=== PATIENT | male | born 1990 | race African-American/Black ===

== ENCOUNTER 2021-02-10 00:15 | Emergency (ER) | payer OTHER ==
[~2021-02-10] VITALS: Ht 167.6 cm; Wt 86.2 kg
[2021-02-10] MEDS ORDERED: NORVASC10 MG PO (00:26)
[2021-02-10] MEDS ORDERED: CARVEDILOL25 MG PO (00:26)
[2021-02-10] MEDS ORDERED: RENVELA0.8 GM PO (00:26)
[2021-02-10] MEDS ORDERED: LANTUS SUBQ (00:47)
[2021-02-10] MEDS ORDERED: HUMALOG100 UNIT/1 SUBQ (00:48)
[2021-02-10 00:54] LABS: BASOPHILS 0.3 % (0.0-2.0); HEMATOCRIT 31.8 % (42.0-52.0); HEMOGLOBIN 10.6 gm/dL (14.0-18.0); LYMPHOCYTES 10.9 % (24.0-44.0); MCH 33.3 pg (26.0-34.0); MCHC 33.4 g/dL (28.0-37.0); MCV 99.9 fL (80.0-100.0); MONOCYTES 7.9 % (1.0-8.0); PLATELET COUNT 264 thou/uL (150-400); POLYS 77.9 % (36.0-66.0); RBC 3.18 mil/uL (4.50-6.00); RDW 19.1 % (10.5-14.5); WBC 10.2 thou/uL (4.0-11.0)
[2021-02-10 01:08] LABS: CALCIUM 8.3 mg/dL (8.5-10.1); CREATININE 19.7 mg/dL (0.7-1.3)
[2021-02-10 01:16] LABS: ALBUMIN 3.5 g/dL (3.4-5.0); TOTAL BILIRUBIN 0.7 mg/dL (0.2-1.0); TOTAL PROTEIN 7.7 g/dL (6.4-8.2); TROPONIN-I 0.09 ng/mL (<0.06)
[2021-02-10 01:22] LABS: POTASSIUM 5.4 mmol/L (3.5-5.1)
[2021-02-10] MEDS ORDERED: AZITHROMYCIN 2250 MG PO (03:37)
[2021-02-10] MEDS ORDERED: VENTOLIN HFA 1818 GM INH (03:44)
[2021-02-10 04:45] VITALS: BP 168/98
--- NOTE | 2021-02-10 07:28 | EKG ---
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1990 Requested By: Kofi Bhatti Order Number: [id number] MD: Richard Galicia Measurements Intervals [place] Rate: 92 P: 31 [place]: 171 QRS: 45 QRSD: 104 T: -90 QT: 370 QTc: 458 Interpretive Statements Sinus rhythm Inferior infarct, age indeterminate Lateral leads are also involved Baseline wander in lead(s) V5 Partial missing lead(s): V5 No previous ECG available for comparison Electronically Signed On 02-10-2021 7:28:06 CDT by Richard Galicia [email or web address] <ELECTRONICALLY SIGNED> By: Richard Galicia MD, [facility] 02/10/21 0728 0027 Richard Galicia MD, FACC /EPI
== END 2021-02-10 04:47 | disposition home or self-care (01) ==
LOC: ER 00:15
PROVIDERS: Emergency Medicine
DX: R07.89 Other chest pain (principal); Z20.822 Contact with and (suspected) exposure to COVID-19; J20.9 Acute bronchitis, unspecified; A49.9 Bacterial infection, unspecified; E10.9 Type 1 diabetes mellitus without complications; I10 Essential (primary) hypertension; Z79.899 Other long term (current) drug therapy

== ENCOUNTER 2021-04-20 06:41 | Emergency (ER) | payer OTHER ==
[~2021-04-20] VITALS: Ht 167.6 cm; Wt 87.1 kg
[~2021-04-20 06:41] MED LIST: AZITHROMYCIN 2250 MG PO; CARVEDILOL25 MG PO; HUMALOG100 UNIT/1 SUBQ; LANTUS SUBQ; NORVASC10 MG PO; RENVELA0.8 GM PO; VENTOLIN HFA 1818 GM INH
[2021-04-20 07:16] LABS: ABSOLUTE NEUTROPHILS 6.5 thou/uL (1.4-8.2); BASOPHILS 0.5 % (0.0-2.0); HEMATOCRIT 28.6 % (42.0-52.0); HEMOGLOBIN 9.5 gm/dL (14.0-18.0); LYMPHOCYTES 16.3 % (24.0-44.0); MCH 33.1 pg (26.0-34.0); MCHC 33.2 g/dL (28.0-37.0); MCV 99.7 fL (80.0-100.0); MONOCYTES 9.3 % (1.0-8.0); PLATELET COUNT 301 thou/uL (150-400); POLYS 69.9 % (36.0-66.0); RBC 2.87 mil/uL (4.50-6.00); RDW 20.3 % (10.5-14.5); WBC 9.3 thou/uL (4.0-11.0)
[2021-04-20 07:22] LABS: CALCIUM 6.9 mg/dL (8.5-10.1); CREATININE 17.4 mg/dL (0.7-1.3); POTASSIUM 4.3 mmol/L (3.5-5.1)
[2021-04-20 07:32] LABS: ALBUMIN 3.2 g/dL (3.4-5.0); TOTAL BILIRUBIN 0.4 mg/dL (0.2-1.0); TOTAL PROTEIN 7.5 g/dL (6.4-8.2)
[2021-04-20 07:51] VITALS: BP 146/95
[2021-04-20] MEDS ORDERED: ZOFRAN ODT4 MG PO (07:53)
--- NOTE | 2021-04-21 07:39 | EKG ---
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1990 Requested By: Kofi Bhatti Order Number: [id number] MD: Richard Galicia Measurements Intervals [place] Rate: 93 P: 12 MT: 175 QRS: -32 QRSD: 106 T: 142 QT: 393 QTc: 489 Interpretive Statements Sinus rhythm LVH with secondary repolarization abnormality Anterior Q waves, possibly due to LVH Compared to ECG 02/10/2021 00:27:08 Left ventricular hypertrophy now present Early repolarization now present Q waves now present Prolonged QT interval now present Myocardial infarct finding no longer present Electronically Signed On 04-21-2021 7:39:19 CDT by Richard Galicia [email or web address] <ELECTRONICALLY SIGNED> By: Richard Galicia MD, FAC 04/21/21 0739 0651 Richard Galicia MD, [facility] /EPI
== END 2021-04-20 07:51 | disposition home or self-care (01) ==
LOC: ER 06:41
PROVIDERS: Emergency Medicine
DX: I12.0 Hypertensive chronic kidney disease with stage 5 chronic kidney disease or end stage renal disease (principal); E10.22 Type 1 diabetes mellitus with diabetic chronic kidney disease; R07.89 Other chest pain; R11.0 Nausea; Z99.2 Dependence on renal dialysis; Z79.51 Long term (current) use of inhaled steroids; Z79.4 Long term (current) use of insulin; Z79.899 Other long term (current) drug therapy

== ENCOUNTER 2021-05-13 23:46 | Emergency (ER) | payer OTHER ==
[~2021-05-13] VITALS: Ht 167.6 cm; Wt 86.2 kg
[~2021-05-13 23:46] MED LIST changes: +ZOFRAN ODT4 MG PO
[2021-05-14] MEDS ORDERED: IBUPROFEN 600600 M1 PO (00:46)
[2021-05-14] MEDS ORDERED: FLEXERIL PO (00:46)
[2021-05-14 01:10] VITALS: BP 149/84
== END 2021-05-14 01:15 | disposition home or self-care (01) ==
LOC: ER 23:46
DX: S80.11XA Contusion of right lower leg, initial encounter (principal); E10.9 Type 1 diabetes mellitus without complications; I10 Essential (primary) hypertension; Z79.899 Other long term (current) drug therapy; W19.XXXA Unspecified fall, initial encounter; Y93.89 Activity, other specified; Y92.89 Other specified places as the place of occurrence of the external cause; Y99.8 Other external cause status

== ENCOUNTER 2021-07-23 00:06 | Emergency (ER) | payer OTHER ==
[~2021-07-23] VITALS: Ht 167.6 cm; Wt 86.2 kg
[~2021-07-23 00:06] MED LIST changes: +FLEXERIL PO; +IBUPROFEN 600600 M1 PO
[2021-07-23] MEDS ORDERED: AZITHROMYCIN 2250 MG PO (01:09)
[2021-07-23 01:15] VITALS: BP 148/84
== END 2021-07-23 01:20 | disposition home or self-care (01) ==
LOC: ER 00:06
PROVIDERS: Emergency Medicine
DX: J18.9 Pneumonia, unspecified organism (principal); Z20.822 Contact with and (suspected) exposure to COVID-19; N18.6 End stage renal disease; F12.90 Cannabis use, unspecified, uncomplicated; Z99.2 Dependence on renal dialysis; Z79.51 Long term (current) use of inhaled steroids; Z79.4 Long term (current) use of insulin; Z79.891 Long term (current) use of opiate analgesic; Z79.899 Other long term (current) drug therapy

== ENCOUNTER 2021-08-31 15:28 | Emergency (ER) | payer OTHER ==
[~2021-08-31] VITALS: Ht 167.6 cm; Wt 86.2 kg
[2021-08-31 15:33] VITALS: BP 145/81
[2021-08-31] MEDS ORDERED: NAPROSYN500 MG PO (16:33)
[2021-08-31] MEDS ORDERED: ZOFRAN ODT4 MG PO (16:33)
[2021-08-31] MEDS ORDERED: PROAIR HFA8.5 GM INH (16:33)
== END 2021-08-31 16:30 | disposition home or self-care (01) ==
LOC: ER 15:28
DX: U07.1 COVID-19 (principal); I12.0 Hypertensive chronic kidney disease with stage 5 chronic kidney disease or end stage renal disease; E10.22 Type 1 diabetes mellitus with diabetic chronic kidney disease; N18.6 End stage renal disease; Z79.899 Other long term (current) drug therapy

== ENCOUNTER 2021-09-23 09:16 | Emergency (ER) | payer OTHER ==
[~2021-09-23] VITALS: Ht 167.6 cm; Wt 86.2 kg
[~2021-09-23 09:16] MED LIST changes: +NAPROSYN500 MG PO; +PROAIR HFA8.5 GM INH
[2021-09-23 10:03] LABS: ABSOLUTE NEUTROPHILS 4.5 thou/uL (1.4-8.2); BASOPHILS 0.4 % (0.0-2.0); HEMATOCRIT 28.2 % (42.0-52.0); HEMOGLOBIN 9.3 gm/dL (14.0-18.0); LYMPHOCYTES 22.6 % (24.0-44.0); MCH 32.6 pg (26.0-34.0); MCHC 33.2 g/dL (28.0-37.0); MCV 98.4 fL (80.0-100.0); PLATELET COUNT 203 thou/uL (150-400); RBC 2.86 mil/uL (4.50-6.00); RDW 23.4 % (10.5-14.5); WBC 7.2 thou/uL (4.0-11.0)
[2021-09-23 10:06] LABS: POTASSIUM 5.2 mmol/L (3.5-5.1)
[2021-09-23 10:27] LABS: ANISOCYTOSIS 3+
[2021-09-23 10:28] LABS: MACROCYTES 1+; MICROCYTES 1+
[2021-09-23 12:03] VITALS: BP 149/95
--- NOTE | 2021-09-24 07:46 | EKG ---
[address] [address] [place] [address] ELECTROCARDIOGRAM REPORT Name: DEYA NICOLAS Room #: LAQUITA Mensah#: [id number] Admission: 09/23/21 Attend Phys: Discharge: 09/23/21 Date of : [birth year] Report #: [id number] 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 : 1990 Requested By: Duane Tanner Order Number: [id number] MD: Saman Lane Measurements Intervals [place] Rate: 77 P: -8 [place]: 192 QRS: -30 QRSD: 107 T: 142 QT: 403 QTc: 457 Interpretive Statements Sinus rhythm Probable left atrial enlargement LVH with secondary repolarization abnormality Compared to ECG 04/20/2021 06:51:09 No significant change was found Electronically Signed On 09-24-2021 7:46:15 [employer] [address]an [address] [email or web address] <ELECTRONICALLY SIGNED> By: Saman Lane MD, [facility] 09/24/[address] MD, FACC /EPI
== END 2021-09-23 12:07 | disposition home or self-care (01) ==
LOC: ER 09:16
PROVIDERS: Student in an Organized Health Care Education/Training Program
DX: R07.89 Other chest pain (principal); I12.0 Hypertensive chronic kidney disease with stage 5 chronic kidney disease or end stage renal disease; E11.22 Type 2 diabetes mellitus with diabetic chronic kidney disease; N18.6 End stage renal disease; Z79.899 Other long term (current) drug therapy